=== PATIENT | male | born 1945 | race Caucasian/White ===

== ENCOUNTER 2020-03-15 10:16 | Outpatient (CLI) | payer BC ==
--- NOTE | 2020-03-15 10:57 | CT ---
CT lumbar spine without IV contrast INDICATION: 74-year-old male with back and hip pain Comparison: Lumbar spinal radiographs dated August 08, 2019 FINDINGS: Bones: No acute fracture evident. Spinal alignment within normal limits. Disc spaces: There is mild loss of the normal disc space height at L5-S1. Osseous central canal and neural foramina: There is bilateral neural foraminal narrowing at L4-5 and L3-4 due to broad-based disc bulge and facet hypertrophy. The remaining osseous neural foramina appear relatively patent. No appreciable osseous central canal narrowing is evident. Retroperitoneum and paravertebral soft tissues: There are moderate vascular calcifications seen invol ving the visualized vasculature. There is partial visualization of a cystic abnormality involving the left kidney that is incompletely included in the [id number]. IMPRESSION: 1. No acute fracture or subluxation demonstrated. 2. Mild spondylosis of the lumbar spine with mild bilateral osseous neural foraminal narrowing sugges lizandro at L4-5 and L3-4. The patient continues to have radiculopathy symptoms, further evaluation with a MRI of the lumbar spine would be helpful to better detailed extent of the neural foraminal narrowin g. 3. Partial visualization of a cystic abnormality involving the left kidney. Recommend follow-up CT th e abdomen or MRI abdomen utilizing renal mass protocol for additional characterization.
== END 2020-03-15 10:17 | disposition home or self-care (01) ==
LOC: SCSCT 10:16
PROVIDERS: ATTEND Physical Medicine & Rehabilitation
DX: M51.16 Intervertebral disc disorders with radiculopathy, lumbar region (principal); M47.26 Other spondylosis with radiculopathy, lumbar region; M48.061 Spinal stenosis, lumbar region without neurogenic claudication; N28.1 Cyst of kidney, acquired
CPT/HCPCS: 72131

== ENCOUNTER 2020-03-18 09:19 | Outpatient (CLI) | payer BC ==
--- NOTE | 2020-03-18 10:34 | RAD ---
XR Chest Pa Lat STANDARD HISTORY: Shortness of breath COMPARISON: 02/06/2012 FINDINGS: A right-sided AICD is again seen. The heart size is at upper limits of normal. The lungs ar e well expanded without focal areas of consolidation, pneumothorax or large pleural effusions. Small posterior pleural effusions are noted.
== END 2020-03-18 09:20 | disposition home or self-care (01) ==
LOC: SCSRAD 09:19
PROVIDERS: ATTEND Internal Medicine Cardiovascular Disease
DX: R06.02 Shortness of breath (principal)
CPT/HCPCS: 71046

== ENCOUNTER 2022-02-14 10:33 | Outpatient (CLI) | payer BC, MEDICARE ==
[2022-02-14 12:29] LABS: Mean Corpuscular HGB CONC 32.9 g/dL (32.0-36.0); Mean Corpuscular Hemoglobin 28.2 pg (27.0-33.0); Mean Corpuscular Volume 85.9 fl (81.2-95.1); Mean Platelet Volume 10.1 fl (7.4-10.4); Platelet Count 185 10x3/uL (150-450); Red Blood Cell (RBC) Count 5.67 10x6/uL (4.32-5.72); White Blood Cell (WBC) Count 4.8 10x3/uL (3.5-10.5)
[2022-02-14 12:42] LABS: INR-International Normal Ratio 0.9; Prothrombin Time 10.3 sec (9.5-12.1)
[2022-02-14 13:00] LABS: Anion Gap 17 mmol/L (10-20); BUN (Urea Nitrogen) 21 mg/dL (8.4-25.7); Calc. Creatinine Clearance 0 mL/min (70-130); Calcium 9.2 mg/dL (7.8-10.44); Carbon Dioxide 26 mmol/L (23-31); Chloride 106 mmol/L (98-107); Glucose 115 mg/dL (83-110); Potassium 4.5 mmol/L (3.5-5.1); Sodium 144 mmol/L (136-145)
[2022-02-14 18:45] LABS: SARS-CoV-2 PCR by NAA Not Detected (NotDetected)
== END 2022-02-14 10:34 | disposition home or self-care (01) ==
LOC: LABBT 10:33
PROVIDERS: ATTEND Internal Medicine Cardiovascular Disease
DX: Z01.812 Encounter for preprocedural laboratory examination (principal); I11.0 Hypertensive heart disease with heart failure; I50.22 Chronic systolic (congestive) heart failure; Z95.810 Presence of automatic (implantable) cardiac defibrillator; Z20.822 Contact with and (suspected) exposure to COVID-19
CPT/HCPCS: 80048; 85027; 85610; U0003; U0005

== ENCOUNTER 2022-02-16 08:19 | Day surgery (SDC) | payer MEDICARE, BC ==
[2022-02-15 09:51] VITALS: BMI 24.4
[2022-02-16] MEDS ORDERED: Vancomycin (BATCH) 1.5 GRAM/300 ML BAG ONE (08:31)
[2022-02-16] MEDS ORDERED: Gentamicin 80 MG/2 ML VIAL ONE (09:22)
[2022-02-16] MEDS ORDERED: CEFAZOLIN 1 GM VIAL ONE (09:22)
[2022-02-16] MEDS ORDERED: Lidocaine 1% (PF) 30 ML VIAL ONE (09:22)
[2022-02-16] MEDS ORDERED: Fentanyl 100 MCG/2 ML VIAL ONE (10:22)
[2022-02-16] MEDS ORDERED: PROPOFOL 20 ML ONE (11:01)
== END 2022-02-16 13:52 | disposition home or self-care (01) ==
LOC: SDC 08:19
PROVIDERS: ATTEND Internal Medicine Cardiovascular Disease
PROC: 0JPT0PZ Removal of Cardiac Rhythm Related Device from Trunk Subcutaneous Tissue and Fascia, Open Approach (ICD-10-PCS; principal; 2022-02-16)
PROC: 0JH608Z Insertion of Defibrillator Generator into Chest Subcutaneous Tissue and Fascia, Open Approach (ICD-10-PCS; 2022-02-16)
PROC: 3E0102A Introduction of Anti-Infective Envelope into Subcutaneous Tissue, Open Approach (ICD-10-PCS; 2022-02-16)
DX: T82.111A Breakdown (mechanical) of cardiac pulse generator (battery), initial encounter (principal); I11.0 Hypertensive heart disease with heart failure; I50.22 Chronic systolic (congestive) heart failure; I42.8 Other cardiomyopathies; I47.1 Supraventricular tachycardia; I49.3 Ventricular premature depolarization; I48.0 Paroxysmal atrial fibrillation; I25.10 Atherosclerotic heart disease of native coronary artery without angina pectoris; E78.5 Hyperlipidemia, unspecified; E11.9 Type 2 diabetes mellitus without complications; Z87.891 Personal history of nicotine dependence; Z79.01 Long term (current) use of anticoagulants; Z79.84 Long term (current) use of oral hypoglycemic drugs; Z79.899 Other long term (current) drug therapy; Y71.1 Therapeutic (nonsurgical) and rehabilitative cardiovascular devices associated with adverse incidents
CPT/HCPCS: 33263; C1721; C1763; J3370; J0690; J1580; J2001; J2704; J3010

== ENCOUNTER 2023-05-23 09:33 | Outpatient (CLI) | payer MEDICARE, BC ==
[2023-05-23 11:47] LABS: Hemoglobin 15.6 g/dL (13.5-17.5); Mean Corpuscular HGB CONC 33.2 g/dL (32.0-36.0); Mean Corpuscular Hemoglobin 29.4 pg (27.0-33.0); Mean Corpuscular Volume 88.5 fl (81.2-95.1); Mean Platelet Volume 9.8 fl (7.4-10.4); Platelet Count 176 10x3/uL (150-450); RBC Distribution Width 13.1 % (11.5-14.5); Red Blood Cell (RBC) Count 5.31 10x6/uL (4.32-5.72)
[2023-05-23 12:06] LABS: Anion Gap 11 mmol/L (10-20); BUN (Urea Nitrogen) 20 mg/dL (8.4-25.7); Calc. Creatinine Clearance 0 mL/min (70-130); Calcium 8.7 mg/dL (7.8-10.44); Carbon Dioxide 28 mmol/L (23-31); Chloride 106 mmol/L (98-107); Estimated GFR 89; Glucose 112 mg/dL (83-110); Potassium 4.4 mmol/L (3.5-5.1); Sodium 141 mmol/L (136-145)
[2023-05-23 12:41] LABS: PTT 26.4 sec (22.0-33.0); Prothrombin Time 10.4 sec (9.5-12.1)
== END 2023-05-23 09:34 | disposition home or self-care (01) ==
LOC: LABBT 09:33
PROVIDERS: ATTEND Urology
DX: Z01.818 Encounter for other preprocedural examination (principal); N20.0 Calculus of kidney
CPT/HCPCS: 80048; 85027; 85610; 85730; 87086; 93005; 93010

== ENCOUNTER 2023-05-28 06:38 | Day surgery (SDC) | payer MEDICARE, BC ==
[2023-05-23 10:17] VITALS: BMI 23.7
[2023-05-28] MEDS ORDERED: LevoFLOXacin 500 mg/D5W 100 ML BAG ONE (08:02)
[2023-05-28] MEDS ORDERED: Famotidine/PF 20 mg/2ml Vial ONE (08:03)
[2023-05-28] MEDS ORDERED: fentaNYL 50 mcg/mL 1 mL Vial ONE (08:03)
[2023-05-28] MEDS ORDERED: Ondansetron PF 4 MG/2 ML Vial ONE ×2 (08:07→08:13)
[2023-05-28] MEDS ORDERED: Dexamethasone 20 MG/5 ML VIAL ONE (08:13)
[2023-05-28] MEDS ORDERED: Lidocaine 1% PF 5 ML VIAL ONE (08:13)
[2023-05-28] MEDS ORDERED: ePHEDrine Sulfate 50 MG/10 ML VIAL ONE (08:13)
[2023-05-28] MEDS ORDERED: PROPOFOL 200 MG/20 ML VIAL ONE (08:13)
[2023-05-28] MEDS ORDERED: Iopamidol 15 ML ONE (09:26)
== END 2023-05-28 11:40 | disposition home or self-care (01) ==
LOC: SDC 06:38
PROVIDERS: ATTEND Urology
PROC: 0T7D8DZ Dilation of Urethra with Intraluminal Device, Via Natural or Artificial Opening Endoscopic (ICD-10-PCS; principal; 2023-05-28)
DX: N20.0 Calculus of kidney (principal); I11.0 Hypertensive heart disease with heart failure; I50.9 Heart failure, unspecified; E11.9 Type 2 diabetes mellitus without complications; E78.00 Pure hypercholesterolemia, unspecified; I48.91 Unspecified atrial fibrillation; Z98.890 Other specified postprocedural states; Z79.899 Other long term (current) drug therapy; Z79.84 Long term (current) use of oral hypoglycemic drugs
CPT/HCPCS: 52332; 74420; C2617; J1100; J1956; J2405; J2704; J3010; Q9967; S0028

== ENCOUNTER 2023-06-05 11:32 | Day surgery (SDC) | payer MEDICARE, BC ==
[2023-05-23 11:06] VITALS: BMI 23.7
[2023-06-05] MEDS ORDERED: Iopamidol 30 ML ONE (13:32)
[2023-06-05] MEDS ORDERED: fentaNYL PF 100 MCG/2 ML SYRINGE ONE (13:41)
[2023-06-05] MEDS ORDERED: LevoFLOXacin 500 mg/D5W 100 ML BAG ONE (13:41)
[2023-06-05] MEDS ORDERED: PROPOFOL 200 MG/20 ML VIAL ONE (13:57)
[2023-06-05] MEDS ORDERED: Lidocaine 1% PF 5 ML VIAL ONE (13:57)
[2023-06-05] MEDS ORDERED: fentaNYL 50 mcg/mL 1 mL Vial ONE (16:02)
[2023-06-05] MEDS ORDERED: HYDROcodone/Acetaminophen 5/325 mg Tablet ONE (17:26)
[2023-06-05] MEDS ORDERED: Ondansetron PF 4 MG/2 ML Vial ONE (17:59)
== END 2023-06-05 18:27 | disposition home or self-care (01) ==
LOC: SDC 11:32
PROVIDERS: ATTEND Urology
PROC: 0TC08ZZ Extirpation of Matter from Right Kidney, Via Natural or Artificial Opening Endoscopic (ICD-10-PCS; principal; 2023-06-05)
PROC: 0T768DZ Dilation of Right Ureter with Intraluminal Device, Via Natural or Artificial Opening Endoscopic (ICD-10-PCS; 2023-06-05)
DX: N20.0 Calculus of kidney (principal); I50.9 Heart failure, unspecified; I11.0 Hypertensive heart disease with heart failure; E11.9 Type 2 diabetes mellitus without complications; E78.00 Pure hypercholesterolemia, unspecified; I48.91 Unspecified atrial fibrillation; Z79.899 Other long term (current) drug therapy; Z79.84 Long term (current) use of oral hypoglycemic drugs
CPT/HCPCS: 52356; 74420; 82365; C1747; C1769; C2617; J3010; 88300; J1956; J2405; J2704; Q9967